=== PATIENT | male | born 1965 | race African-American/Black ===

== ENCOUNTER 2019-12-22 10:48 | Emergency (ER) | payer SELFPAY ==
[2019-12-22 13:29] VITALS: BP 135/82
--- NOTE | 2019-12-22 15:01 | Emergency Department Report ---
Chief Complaint: Sore Throat Stated Complaint: EAR PAIN Time Seen by Provider: 12/22/19 14:54 - HPI History of Present Illness: This is a 54-year-old male who presents the ED complaining of left-sided throat pain for the past couple weeks. Patient states that he is also been having some itching to the back of his head. Patient states throat pain is localized to his left side. He denies fever/chills/nausea vomiting. - ROS Review of Systems: As noted in HPI - Exam Vital Signs: Vital Signs 12/22/19 13:28 Temperature 97.8 F Pulse Rate 54 L Respiratory 18 Rate Blood Pressure 135/82 O2 Sat by Pulse 98 Oximetry Physical Exam: GENERAL: Alert and oriented x3, no apparent distress, Normal Gait, atraumatic. HEAD: Head is normocephalic and a-traumatic. MOUTH:Mouth is well hydrated and without lesions. Left tonsils erythematous and swollen, tonsil stone noted in the pocket of the tonsil uvula midline, Tongue not elevated. Mucous membranes are moist. Posterior pharynx clear, no exudate or lesions. Patent airways. NECK: Supple. Non edematous, No carotid bruits. No lymphadenopathy or thyromegaly. No C-spine tenderness SKIN: Warm and dry, No lesions, No ulceration or induration present. MSE screening note: Focused history and physical exam performed. Due to findings the following was ordered: ED Medical Decision Making - Medical Decision Making 54-year-old male presents with tonsil stone to the left tonsil. 1 tonsil tonsil stone was removed. Discussed with patient still need to follow-up with a ENT specialist. Vital signs are normal patient is in no acute distress. Patient had patent airways. ED Disposition for MSE Clinical Impression: Tonsil stone Disposition: Z-07 MED SCREENING EXAM-LEFT Is pt being admited?: No Does the pt Need Aspirin: No Condition: Stable Instructions: Tonsillitis (ED) Additional Instructions: Make sure to follow up with the primary care physician as discussed. Take all your medications as you've been prescribed. If you have any worsening symptoms or develop new symptoms please return to ED immediately. Prescriptions: Nystas/Diphen/Xyl Visc/Mylanta [Magic Mouthwash] 15 ml MM Q6H PRN #120 ml PRN Reason: Sore Throat Ibuprofen [Motrin 800 MG tab] 800 mg PO Q8HR PRN #30 tablet PRN Reason: Pain Amoxicillin [Trimox CAP] 500 mg PO Q8H #21 capsule Referrals: PRIMARY CARE, [Primary Care Provider] - 3-5 Days SARAH URIBE MD [Staff Physician] - 3-5 Days Forms: Work/School Release Form(ED) Time of Disposition: 15:05
== END 2019-12-22 15:36 | disposition left against medical advice (07) ==
LOC: ED 10:48
DX: J35.8 Other chronic diseases of tonsils and adenoids (principal); Z98.890 Other specified postprocedural states
CPT/HCPCS: 99282